=== PATIENT | male | born 1985 | race Caucasian/White ===

== ENCOUNTER 2017-06-23 12:41 | Outpatient (CLI) | payer OTHER ==
[2017-06-23 12:56] LABS: BASOPHILS % 1.1 (0.0-1.5); EOSINOPHILS % 2.6 % (0.0-6.8); MEAN CORPUSCULAR VOLUME 90.8 fl (80.0-100.0); MONOCYTES % 6.8 % (0.0-11.0); NEUTROPHILS # 6.6 # k/uL (1.4-7.7)
[2017-06-23 13:07] LABS: eGFR (African) > 60; eGFR (Non-African) > 60
== END 2017-06-23 12:42 ==
LOC: LAB 12:41
PROVIDERS: ATTEND Student in an Organized Health Care Education/Training Program
DX: L08.89 Other specified local infections of the skin and subcutaneous tissue (principal)
CPT/HCPCS: 80053; 85025; 85651; 86140

== ENCOUNTER 2017-09-23 07:58 | Outpatient (CLI) | payer OTHER ==
[2017-09-23 08:42] LABS: BASOPHILS % 0.6 (0.0-1.5); EOSINOPHILS % 2.3 % (0.0-6.8); MEAN CORPUSCULAR HEMOGLOBIN 30.3 pg (28.0-34.0); MONOCYTES % 4.6 % (0.0-11.0); NEUTROPHILS # 8.1 # k/uL (1.4-7.7)
[2017-09-23 09:19] LABS: eGFR (African) > 60; eGFR (Non-African) > 60
== END 2017-09-23 08:00 ==
LOC: LAB 07:58
PROVIDERS: ATTEND Physician Assistant
DX: E11.9 Type 2 diabetes mellitus without complications (principal); F41.9 Anxiety disorder, unspecified; I10 Essential (primary) hypertension; M62.50 Muscle wasting and atrophy, not elsewhere classified, unspecified site; R53.83 Other fatigue
CPT/HCPCS: 36415; 80053; 80061; 83036; 84403; 84443; 85025

== ENCOUNTER 2017-12-01 14:16 | Outpatient (CLI) | payer OTHER | END 2017-12-01 14:17 | LOC: RT 14:16 | PROVIDERS: ATTEND Clinical Nurse Specialist Medical-Surgical | DX: M54.5 Low back pain (principal); E66.9 Obesity, unspecified; Z68.38 Body mass index [BMI] 38.0-38.9, adult; I10 Essential (primary) hypertension ==

== ENCOUNTER 2019-05-26 10:22 | Outpatient (CLI) | payer OTHER ==
[2019-05-26 11:03] LABS: HDL 45 mg/dL (>40); eGFR (Non-African) > 60
[2019-05-27 09:29] LABS: A1C 5.5 % (<5.7)
== END 2019-05-26 10:24 ==
LOC: LAB 10:22
PROVIDERS: ATTEND Family Medicine
DX: E11.9 Type 2 diabetes mellitus without complications (principal); N52.9 Male erectile dysfunction, unspecified; I10 Essential (primary) hypertension; Z20.2 Contact with and (suspected) exposure to infections with a predominantly sexual mode of transmission
CPT/HCPCS: 36415; 80053; 80061; 83036; 84403; 86694; 86704; 86706; 86707; 86803; 87340; 87350; 87491; 87591